=== PATIENT | male | born 1990 | race Caucasian/White ===

== ENCOUNTER 2021-02-14 10:40 | Emergency (ER) | payer SELFPAY ==
[~2021-02-14] VITALS: Ht 175.3 cm; Wt 96.1 kg
[2021-02-14 10:58] VITALS: BP 143/96
[2021-02-14] MEDS ORDERED: KETOROLAC 30 MG/1 ML IM ONE (11:30)
[2021-02-14] MEDS ORDERED: KETOROLAC 30 MG/1 ML ONE (11:33)
== END 2021-02-14 12:11 | disposition home or self-care (01) ==
LOC: ED 11:16
DX: M25.572 Pain in left ankle and joints of left foot (principal)
CPT/HCPCS: 73610; 96372; 99283; J1885